=== PATIENT | female | born 1955 | race Two or more races ===

== ENCOUNTER 2018-12-10 23:54 | Emergency (ER) | payer MEDICAID ==
[~2018-12-10] VITALS: Ht 152.4 cm; Wt 81.6 kg
[2018-12-11 00:41] VITALS: BP 142/91
== END 2018-12-11 02:18 | disposition home or self-care (01) ==
LOC: ER 23:57
DX: M93.951 Osteochondropathy, unspecified, right thigh (principal)
CPT/HCPCS: 72170; 99283; A4606